=== PATIENT | female | born 1980 | race Caucasian/White ===

== ENCOUNTER 2023-10-17 01:49 | Emergency (ER) | payer MEDICAID, OTHER ==
[~2023-10-17] VITALS: Ht 157.5 cm; Wt 84.8 kg
[2023-10-17 01:52] VITALS: BP 148/93; PULSE 108; RESP 20; TEMP 97.3; O2SAT 98
[2023-10-17] MEDS: KETOROLAC 30 MG/ML VIAL IM ONE (02:40)
[2023-10-17] MEDS: methocarbamoL 500 MG TAB PO ONE (02:40)
[2023-10-17] MEDS ORDERED: CYCL-711 PO (04:40)
== END 2023-10-17 04:46 | disposition home or self-care (01) ==
LOC: MED 01:49
DX: R25.2 Cramp and spasm (principal); Z79.899 Other long term (current) drug therapy
CPT/HCPCS: 96372; 99283; J1885